=== PATIENT | female | born 1955 | race Caucasian/White ===

== ENCOUNTER 2020-08-24 19:31 | Emergency (ER) | payer BC ==
[~2020-08-24] VITALS: Ht 167.6 cm; Wt 48.1 kg
[2020-08-24 19:36] VITALS: BP_SYST 127
[2020-08-24 20:17] VITALS: BP_SYST 128
== END 2020-08-24 20:17 | disposition home or self-care (01) ==
LOC: SED 19:31
DX: S01.81XA Laceration without foreign body of other part of head, initial encounter (principal); W03.XXXA Other fall on same level due to collision with another person, initial encounter; Y93.89 Activity, other specified; Y92.89 Other specified places as the place of occurrence of the external cause; Y99.8 Other external cause status
CPT/HCPCS: 99282